=== PATIENT | female | born 1995 | race American Indian/Alaskan Native ===

== ENCOUNTER 2019-12-09 22:06 | Emergency (ER) | payer OTHER ==
[2019-12-09 22:13] VITALS: BP 111/72
--- NOTE | 2019-12-09 23:12 | Emergency Department Report ---
- General Chief Complaint: Upper Respiratory Infection Stated Complaint: COUGH FEVER HEADACHE BODYACHE Time Seen by Provider: 12/09/19 22:49 Source: patient Mode of arrival: Ambulatory Limitations: No Limitations - History of Present Illness MD Complaint: rhinorrhea, nasal congestion -: Sudden (1), days(s) (2) Consistency: constant Improves With: nothing Worsens With: nothing Associated Symptoms: rhinorrhea, nasal congestion, cough. denies: abdominal p ain, nausea, vomiting, weight loss - Related Data Previous Rx's Medication Instructions Recorded Last Taken Type Albuterol INH(or & Nicu Only) 1 puff IH Q4-6H PRN #1 inha 12/09/19 Unknown Rx [ProAir HFA Inhaler] Desloratadine [Clarinex] 5 mg PO DAILY #10 tablet 12/09/19 Unknown Rx Allergies Allergy/AdvReac Type Severity Reaction Status Date / Time No Known Allergies Allergy Verified 12/09/19 22:10 ED Review of Systems ROS: Stated complaint: COUGH FEVER HEADACHE BODYACHE Other details as noted in HPI Comment: All other systems reviewed and negative ED Past Medical Hx - Past Medical History Previous Medical History?: No - Social History Smoking Status: Never Smoker Substance Use Type: None - Medications Home Medications: Home Medications Medication Instructions Recorded Confirmed Last Taken Type Albuterol INH(or & Nicu Only) 1 puff IH Q4-6H PRN #1 inha 12/09/19 Unknown Rx [ProAir HFA Inhaler] Desloratadine [Clarinex] 5 mg PO DAILY #10 tablet 12/09/19 Unknown Rx ED Physical Exam - General Limitations: No Limitations General appearance: alert, in no apparent distress - Head Head exam: Present: atraumatic, normocephalic - Eye Eye exam: Present: normal appearance, PERRL, EOMI Pupils: Present: normal accommodation - ENT ENT exam: Present: normal exam, normal orophraynx, mucous membranes moist, TM's normal bilaterally - Neck Neck exam: Present: normal inspection, full ROM. Absent: lymphadenopathy, thyromegaly - Respiratory Respiratory exam: Present: normal lung sounds bilaterally. Absent: respiratory distress, wheezes, rales - Cardiovascular Cardiovascular Exam: Present: regular rate, normal rhythm. Absent: systolic murmur, diastolic murmur, rubs, gallop - GI/Abdominal GI/Abdominal exam: Present: soft, normal bowel sounds - Extremities Exam Extremities exam: Present: normal inspection, normal capillary refill - Back Exam Back exam: Present: normal inspection. Absent: CVA tenderness (R), CVA tenderness (L), muscle spasm, paraspinal tenderness - Neurological Exam Neurological exam: Present: alert, oriented X3, CN II-XII intact - Psychiatric Psychiatric exam: Present: normal affect, normal mood - Skin Skin exam: Present: warm, dry, intact, normal color. Absent: rash ED Course Vital Signs 12/09/19 22:12 Temperature 99.4 F Pulse Rate 88 Respiratory 18 Rate Blood Pressure 111/72 O2 Sat by Pulse 99 Oximetry ED Medical Decision Making - Medical Decision Making This patient presents with acute cough, most consistent with URI. Differential diagnosis includes URI/bronchitis. Presentation not consistent with acute bacterial pneumonia, but could possibly be consistent with influenza, asthma, transient airway hyperresponsiveness. Presentation not consistent with chronic causes of cough (including GERD, asthma, postnasal discharge, medication side effect, CHF, lung cancer or mass). Plan: Deferred CXR, supportive care, reassess Critical care attestation.: If time is entered above; I have spent that time in minutes in the direct care of this critically ill patient, excluding procedure time. ED Disposition Clinical Impression: URI (upper respiratory infection) Disposition: DC- TO HOME OR SELFCARE Is pt being admited?: No Does the pt Need Aspirin: No Condition: Stable Instructions: Upper Respiratory Infection (ED) Additional Instructions: Also you may utilize [id number] vitamin C, vitamin B6/B12 and Zicam as needed for your symptoms Prescriptions: Desloratadine [Clarinex] 5 mg PO DAILY #10 tablet Albuterol INH(or & Nicu Only) [ProAir HFA Inhaler] 1 puff IH Q4-6H PRN #1 inha PRN Reason: Cough Referrals: [facility] [Provider Group] - 3-5 Days
== END 2019-12-10 00:10 | disposition home or self-care (01) ==
LOC: ED 22:06
DX: J06.9 Acute upper respiratory infection, unspecified (principal); Z79.899 Other long term (current) drug therapy
CPT/HCPCS: 99282

== ENCOUNTER 2020-01-04 19:36 | Emergency (ER) | payer OTHER ==
[2020-01-04 19:57] VITALS: BP 129/68
[2020-01-04 20:46] LABS: Basophils % (Auto) 0.5 % (0.0-1.8); Eosinophils # (Auto) 0.2 K/mm3 (0.0-0.4); Eosinophils % (Auto) 2.7 % (0.0-4.3); Hemoglobin 12.8 gm/dl (10.1-14.3); Lymphocytes % (Auto) 28.2 % (13.4-35.0); Mean Corpuscular HGB Conc 33 % (30-34); Mean Corpuscular Volume 86 fl (79-97); Monocytes # (Auto) 0.5 K/mm3 (0.0-0.8); Monocytes % (Auto) 7.8 % (0.0-7.3); Platelet Count 247 K/mm3 (140-440); Red Blood Count 4.53 M/mm3 (3.65-5.03); Red Cell Distribution Width 17.1 % (13.2-15.2)
[2020-01-04 21:24] LABS: Alanine Aminotransferase 16 units/L (7-56); Albumin 3.9 g/dL (3.9-5); BUN/Creatinine Ratio 12; Blood Urea Nitrogen 7 mg/dL (7-17); Calcium 9.4 mg/dL (8.4-10.2); Hemolysis Index 8
--- NOTE | 2020-01-04 21:26 | Ultrasound Report ---
OB ultrasound FINDINGS: Viable IUP is seen with heart rate of 155 bpm. Appropriate measurements reveal an MA of 11 weeks 6 days for an MEAGHAN of 07/19/2020. This correlates with the clinical dates. No free fluid i s seen. The left ovary is normal. Right ovary contains a 9 mm cyst. No hemorrhage is seen. No signifi cant abnormality. Signer Name: Zay Rachel MD Signed: 01/04/2020 9:22 PM Workstation Name: [id number]
--- NOTE | 2020-01-04 21:42 | Emergency Department Report ---
ED Female HPI - General Chief complaint: Vaginal Bleeding Stated complaint: DISCHARGE Source: patient Mode of arrival: Ambulatory Limitations: No Limitations - History of Present Illness Initial comments: Patient is a A0 24-year-old -Citizen Of [place] female who is approximately 12 weeks gestation and who presented to the ED with acute onset persistent vaginal spotting for 4 hours. Patient states that she noticed blood mixed with urine in the toilet bowl and that after a few hours she again noticed that the brownish- looking urine was persistent whenever she white went to void urine. Patient states that she decided to come to the ED for evaluation. Patient denies a bdominal pain or pelvic pain. Patient also denies nausea, vomiting, fever, chills, dysuria, urinary frequency and urgency, low back pain, dizziness, syncope or diarrhea and vaginal discharge. MD Complaint: vaginal bleeding -: Sudden, hour(s) (2) Location: suprapubic, other (vaginal) Radiation: non-radiating Severity: mild Severity scale (0 -10): 2 Quality: dull Consistency: constant Improves with: none Worsens with: urination Are you Now?: Yes (12 weeks gestation) Associated Symptoms: denies other symptoms, vaginal bleeding. denies: vaginal discharge, abdominal pain, nausea/vomiting, fever/chills - Related Data Sexually active: Yes : 3 Para: 2 A: 1 Previous Rx's Medication Instructions Recorded Last Taken Type Albuterol INH(or & Nicu Only) 1 puff IH Q4-6H PRN #1 inha 12/09/19 Unknown Rx [ProAir HFA Inhaler] Desloratadine [Clarinex] 5 mg PO DAILY #10 tablet 12/09/19 Unknown Rx cephALEXin [Keflex] 500 mg PO Q8HR #30 cap 01/04/20 Unknown Rx Allergies Allergy/AdvReac Type Severity Reaction Status Date / Time No Known Allergies Allergy Verified 01/04/20 19:41 ED Review of Systems ROS: Stated complaint: DISCHARGE Other details as noted in HPI Constitutional: denies: chills, fever Eyes: denies: eye pain, eye discharge, vision change ENT: denies: ear pain, throat pain Respiratory: denies: cough, shortness of breath, wheezing Cardiovascular: denies: chest pain, palpitations Endocrine: no symptoms reported Gastrointestinal: abdominal pain (suprapubic). denies: nausea, diarrhea Genitourinary: abnormal menses (vaginal spotting). denies: urgency, dysuria, frequency, hematuria, discharge Musculoskeletal: denies: back pain, joint swelling, arthralgia Skin: denies: rash, lesions Neurological: denies: headache, weakness, numbness, paresthesias Psychiatric: denies: anxiety, depression Hematological/Lymphatic: denies: easy bleeding, easy bruising ED Past Medical Hx - Past Medical History Previous Medical History?: No - Surgical History Past Surgical History?: No - Social History Smoking Status: Never Smoker Substance Use Type: None - Medications Home Medications: Home Medications Medication Instructions Recorded Confirmed Last Taken Type Albuterol INH(or & Nicu Only) 1 puff IH Q4-6H PRN #1 inha 12/09/19 Unknown Rx [ProAir HFA Inhaler] Desloratadine [Clarinex] 5 mg PO DAILY #10 tablet 12/09/19 Unknown Rx cephALEXin [Keflex] 500 mg PO Q8HR #30 cap 01/04/20 Unknown Rx ED Physical Exam - General Limitations: No Limitations General appearance: alert, in no apparent distress - Head Head exam: Present: atraumatic, normocephalic, normal inspection - Eye Eye exam: Present: normal appearance, PERRL, EOMI Pupils: Present: normal accommodation - ENT ENT exam: Present: normal exam, normal orophraynx, mucous membranes moist, TM's normal bilaterally, normal external ear exam - Neck Neck exam: Present: normal inspection, tenderness, full ROM - Respiratory Respiratory exam: Present: normal lung sounds bilaterally. Absent: respiratory distress, wheezes, rales, chest wall tenderness, accessory muscle use - Cardiovascular Cardiovascular Exam: Present: regular rate, normal rhythm, normal heart sounds. Absent: systolic murmur, diastolic murmur, rubs, gallop - GI/Abdominal GI/Abdominal exam: Present: soft, normal bowel sounds. Absent: tenderness, guarding, hyperactive bowel sounds, hypoactive bowel sounds, organomegaly - Bi-manual exam: Present: other (Pelvic exam deferred) - Extremities Exam Extremities exam: Present: normal inspection, full ROM, normal capillary refill - Back Exam Back exam: Present: normal inspection, full ROM. Absent: tenderness, muscle spasm, paraspinal tenderness, vertebral tenderness - Neurological Exam Neurological exam: Present: alert, oriented X3, CN II-XII intact, normal gait, reflexes normal - Psychiatric Psychiatric exam: Present: normal affect, normal mood - Skin Skin exam: Present: warm, dry, intact, normal color. Absent: rash ED Course Vital Signs 01/04/20 19:40 Temperature 98.8 F Pulse Rate 80 Respiratory 18 Rate Blood Pressure 129/68 O2 Sat by Pulse 98 Oximetry ED Medical Decision Making - Lab Data Result diagrams: 01/04/20 20:17 01/04/20 20:17 - Radiology Data Radiology results: report reviewed, image reviewed Findings [facility] [address] [place] [address] Ultrasound Report Signed Patient: LUIS GUTIERREZ MR#: [id number] : 1995 Acct:[id number] Age/Sex: 24 / F ADM Date: 01/04/20 Loc: ED Attending Dr: Ordering Physician: NICHELLE LEONARDO Date of Service: 01/04/20 Procedure(s): US OB <= 14 weeks fetus Accession Number(s): [id number] cc: NICHELLE LEONARDO OB ultrasound FINDINGS: Viable IUP is seen with heart rate of 155 bpm. Appropriate measurements reveal an MA of 11 weeks 6 days for an MEAGHAN of 07/19/2020. This correlates with the clinical dates. No free fluid is seen. The left ovary is normal. Right ovary contains a 9 mm cyst. No hemorrhage is seen. No significant abnormality. Signer Name: Zay Rachel MD Signed: 01/04/2020 9:22 PM Workstation Name: [id number] Transcribed By: JD Dictated By: aZy Rachel MD Electronically Authenticated By: Zay Rachel MD Signed Date/Time: 01/04/202121 DD/ 19 TD/TT: - Medical Decision Making This is a A0 24-year-old -Citizen Of [place] female who is approximately 12 weeks gestation and who presented to the ED with vaginal spotting persistently for 4 hours. Patient denied pelvic pain, urinary frequency and urgency, vaginal discharge, dizziness, syncope, chest pain or shortness of breath. In the ED, patient is alert and oriented x3 and is not in any distress. Lab test results were reviewed and [place] [id number]. Urinalysis showed acute urinary tract infection. Transvaginal ultrasound showed a single live and viable IUP with heart rate of 155 bpm. Appropriate measurements reveal an MA of 11 weeks 6 days for an MEAGHAN of 020. This correlates with the clinical dates. No free fluid is seen. The left ovary is normal. Right ovary contains a 9 mm cyst. No hemorrhage is seen. No significant abnormality. Patient was treated in the ED with Rocephin 1 g and muscular injection for UTI. 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 - Differential Diagnosis Threatened miscarriage; UTI; Ovarian cyst; Subchorionic bleed; Fibroids Critical care attestation.: If time is entered above; I have spent that time in minutes in the direct care of this critically ill patient, excluding procedure time. ED Disposition Clinical Impression: Threatened miscarriage, Acute urinary tract infection, Right ovarian cyst Disposition: DC-01 TO HOME OR SELFCARE Is pt being admited?: No Does the pt Need Aspirin: No Condition: Stable Instructions: Threatened Miscarriage (ED), Urinary Tract Infection in Women (ED) Additional Instructions: Maintain a complete pelvic rest, take Tylenol with food as needed for pain, take the oral antibiotic for UTI and follow-up with your [employer]AL[employer] CONTROL ENGINEER physician in 5 to 7 days for reevaluation. Return to the ED immediately if symptoms get worse. Prescriptions: cephALEXin [Keflex] 500 mg PO Q8HR #30 cap Referrals: DAXA MARY MD [Staff Physician] - 3-5 Days Time of Disposition: 23:21 Print Language: MACEDONIAN
[2020-01-04 22:26] LABS: Bacteria,Urine 1+ /HPF (Negative); Bilirubin,Urine NEG (Negative); Blood,Urine SM (Negative); Color,Urine Yellow (Yellow); Mucus,Urine FEW /HPF; Protein,Urine <15 mg/dL mg/dL (Negative); Urobilinogen,Urine < 2.0 mg/dL (<2.0)
[2020-01-04] MEDS ORDERED: cefTRIAXone/NS 1 GM/50 ML 1 GM/50 ML BAG IV ONE (22:42)
== END 2020-01-04 23:45 | disposition home or self-care (01) ==
LOC: ED 19:36
DX: O20.0 Threatened abortion (principal); O34.81 Maternal care for other abnormalities of pelvic organs, first trimester; N83.291 Other ovarian cyst, right side; O23.31 Infections of other parts of urinary tract in pregnancy, first trimester; Z3A.12 12 weeks gestation of pregnancy
CPT/HCPCS: 36415; 76801; 80053; 81001; 83690; 84702; 85025; 86900; 86901; 87086; 96365; 99284; J0696

== ENCOUNTER 2021-03-29 15:56 | Emergency (ER) | payer MEDICAID, OTHER ==
[2021-03-29 17:54] VITALS: BP 120/75
[2021-03-29 18:19] LABS: HCG Qualitative,Urine Negative (Negative)
[2021-03-29 18:24] LABS: Bilirubin,Urine NEG (Negative); Blood,Urine MOD (Negative); Color,Urine Yellow (Yellow); Mucus,Urine FEW /HPF; Protein,Urine <15 mg/dL mg/dL (Negative); Urobilinogen,Urine < 2.0 mg/dL (<2.0)
--- NOTE | 2021-03-29 20:11 | Emergency Department Report ---
ED Female HPI - General Chief complaint: Vaginal Bleeding Stated complaint: FAINTED,BLEEDING Time Seen by Provider: 03/29/21 19:54 Source: patient Mode of arrival: Ambulatory Limitations: No Limitations - History of Present Illness MD Complaint: vaginal bleeding -: days(s) (1) Severity scale (0 -10): 0 Consistency: constant Improves with: none Worsens with: none Are you Now?: Yes (thinks may be due to a faint line on preg test yesterday. ) Last Menstrual Period: 03/29/21 (menses is 2-3 days late) EDC: 01/03/22 - Related Data Previous Rx's Medication Instructions Recorded Last Taken Type Albuterol Mdi (or & Nicu Only) 1 puff IH Q4-6H PRN #1 inha 12/09/19 Unknown Rx [ProAir HFA Inhaler] Desloratadine [Clarinex] 5 mg PO DAILY #10 tablet 12/09/19 Unknown Rx cephALEXin [Keflex] 500 mg PO Q8HR #30 cap 01/04/20 Unknown Rx Allergies Allergy/AdvReac Type Severity Reaction Status Date / Time No Known Allergies Allergy Verified 01/04/20 19:41 ED Review of Systems ROS: Stated complaint: FAINTED,BLEEDING Other details as noted in HPI Comment: All other systems reviewed and negative ED Past Medical Hx - Past Medical History Previous Medical History?: Yes Hx Asthma: Yes - Surgical History Past Surgical History?: No - Social History Smoking Status: Never Smoker Substance Use Type: None - Medications Home Medications: Home Medications Medication Instructions Recorded Confirmed Last Taken Type Albuterol Mdi (or & Nicu Only) 1 puff IH Q4-6H PRN #1 inha 12/09/19 Unknown Rx [ProAir HFA Inhaler] Desloratadine [Clarinex] 5 mg PO DAILY #10 tablet 12/09/19 Unknown Rx cephALEXin [Keflex] 500 mg PO Q8HR #30 cap 01/04/20 Unknown Rx ED Physical Exam - General Limitations: No Limitations General appearance: alert, in no apparent distress - Head Head exam: Present: atraumatic, normocephalic - Eye Eye exam: Present: normal appearance - ENT ENT exam: Present: mucous membranes moist - Neck Neck exam: Present: normal inspection - Respiratory Respiratory exam: Present: normal lung sounds bilaterally. Absent: respiratory distress - Cardiovascular Cardiovascular Exam: Present: regular rate, normal rhythm. Absent: systolic murmur, diastolic murmur, rubs, gallop - GI/Abdominal GI/Abdominal exam: Present: soft, normal bowel sounds - Extremities Exam Extremities exam: Present: normal inspection - Back Exam Back exam: Present: normal inspection - Neurological Exam Neurological exam: Present: alert, oriented X3 - Psychiatric Psychiatric exam: Present: normal affect, normal mood - Skin Skin exam: Present: warm, dry, intact, normal color. Absent: rash ED Course Vital Signs 03/29/21 17:51 Temperature 98.4 F Pulse Rate 59 L Respiratory 16 Rate Blood Pressure 120/75 O2 Sat by Pulse 100 Oximetry ED Medical Decision Making - Medical Decision Making Female presents emergency department with over 1 day of episodic vaginal bleeding most likely of a nonemergent etiology. Based on the history, examination, the ED work-up patient's presentation not consistent with an ectopic , molar , life threatening coagulopathy, serious bacterial infection, central process or other emergency. Patient's bleeding is most likely secondary to, fibroids, or the nonemergent cause of abnormal uterine bleeding. 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 ED Disposition Clinical Impression: Negative test, Vaginal bleeding Disposition: - TO HOME OR SELFCARE Is pt being admited?: No Does the pt Need Aspirin: No Condition: Stable Instructions: Menstruation, Dysmenorrhea, [id number] Referrals: PRIMARY CARE, [Primary Care Provider] - 3-5 Days
== END 2021-03-29 21:25 | disposition home or self-care (01) ==
LOC: ED 15:56
DX: N93.9 Abnormal uterine and vaginal bleeding, unspecified (principal); J45.909 Unspecified asthma, uncomplicated; Z32.02 Encounter for pregnancy test, result negative; Z79.899 Other long term (current) drug therapy
CPT/HCPCS: 81001; 81025